=== PATIENT | male | born 1955 | race Caucasian/White ===

== ENCOUNTER 2017-12-16 13:38 | Emergency (ER) | payer OTHER ==
[~2017-12-16] VITALS: Ht 182.9 cm; Wt 124.9 kg
[2017-12-16 13:40] VITALS: BP 148/101; PULSE 59; RESP 16; TEMP 98.2; O2SAT 95
[2017-12-16] MEDS ORDERED: TRAZ50TA12 PO (13:53)
[2017-12-16] MEDS ORDERED: AMLO10TA2 PO (13:53)
[2017-12-16] MEDS ORDERED: METO100T PO (13:53)
[2017-12-16] MEDS ORDERED: LOSA100T PO (13:53)
[2017-12-16] MEDS ORDERED: OXYMETAZOLINE HCL 0.05% 15 ML NASAL SPRAY NASAL ONE (14:15)
[2017-12-16] MEDS ORDERED: TRAM50TA PO ×2 (14:39→14:40)
[2017-12-16] MEDS ORDERED: AMOX875T PO (14:39)
[2017-12-16] MEDS ORDERED: ACETAMINOPHEN 325 MG TAB PO ONE (14:45)
--- NOTE | 2017-12-16 14:56 | PD ---
HPI Chief Complaint: Nosebleed Time Seen by Provider: 13:47 Travel History International Travel<30 days: No Contact w/Intl Traveler<30days: No Traveled to known affect area: No History of Present Illness HPI 62-year-old male that presents to the ED for evaluation of nosebleed. Per patient she's had about 4 within the last 36 hours. She has a history of nosebleeds in the past usually during the winter but not as severe as they have been the past 36 hours. Per patient he has no pain with it. Per patient he had one about less than an hour ago and was seen at urgent care and he was instructed to come here to get evaluated. Now the bleeding has stopped. Per patient he was told by the provider at the urgent care at that she could get help through having catheterization procedure. He denies taking any blood thinners other than aspirin. He denies any pain. No fevers chills or sweats. History of allergic rhinitis but mild. States that he has problems with blood pressure has been taking his blood pressure medications. He himself took some clonidine. PFSH Past Medical History Cardiovascular Problems: Yes (HTN) Hypertension: Yes Medical other: Yes (ELEV CHOLESTEROL, SLEEP APNEA, BAD BACK, ARTHRITIS) Past Surgical History Oral Surgery: Yes Pacemaker: No Other Surgery: Yes (CARPAL TUNNEL) Social History Alcohol Use: Yes (RARELY) Tobacco Use: Yes (CIGARS) Substance Use: No Allergies-Medications (Allergen,Severity, Reaction): Coded Allergies: No Known Allergies (Unverified Adverse Reaction, Unknown, 12/16/17) Reported Meds & Prescriptions Reported Meds & Active Scripts Active Tramadol (Tramadol HCl) 50 Mg Tab 50 Mg PO Q6H PRN Amoxicillin 875 Mg Tab 875 Mg PO BID 10 Days Reported Amlodipine (Amlodipine Besylate) 10 Mg Tab 10 Mg PO DAILY Losartan (Losartan Potassium) 100 Mg Tab 100 Mg PO DAILY Metoprolol Tartrate 100 Mg Tab 100 Mg PO BID Trazodone (Trazodone HCl) 50 Mg Tab 50 Mg PO HS Review of Systems Except as stated in HPI: all other systems reviewed are Neg Physical Exam Narrative GENERAL: SKIN: Warm and dry. HEAD: Atraumatic. Normocephalic. EYES: Pupils equal and round. No scleral icterus. No injection or drainage. ENT: No nasal bleeding or discharge. Mucous membranes pink and moist. Tongue is midline. No uvula deviation. Nostrils are patent bilaterally. No active bleeding noted on either one of the nostrils. No obvious sign of bleed or at this time. NECK: Trachea midline. No JVD. CARDIOVASCULAR: Regular rate and rhythm. RESPIRATORY: No accessory muscle use. Clear to auscultation. Breath sounds equal bilaterally. GASTROINTESTINAL: Abdomen soft, non-tender, nondistended. Hepatic and splenic margins not palpable. MUSCULOSKELETAL: Extremities without clubbing, cyanosis, or edema. No obvious deformities. NEUROLOGICAL: Awake and alert. No obvious cranial nerve deficits. Motor grossly within normal limits. Five out of 5 muscle strength in the arms and legs. Normal speech. PSYCHIATRIC: Appropriate mood and affect; insight and judgment normal. Data Data Last Documented VS Vital Signs Date Time Temp Pulse Resp B/P (MAP) Pulse Ox O2 Delivery O2 Flow Rate FiO2 12/16/17 13:40 98.2 59 16 148/101 (117) 95 Orders Orders Oxymetazoline 0.05% [place] (Afrin 0.0 (12/16/17 14:15) Acetaminophen (Tylenol) (12/16/17 14:45) Ed Discharge Order (12/16/17 14:49) [facility] Medical Decision Making Medical Screen Exam Complete: Yes Emergency Medical Condition: Yes Medical Record Reviewed: Yes Differential Diagnosis Epistaxis versus posterior epistaxis versus allergic rhinitis Narrative Course 62-year-old male that presents to the ED for evaluation of epistaxis. Patient was properly examined and was found to have signs and symptoms consistent with epistaxis. Possibly posterior as I cannot see an obvious anterior bleed. Patient has no bleeding at this time. I have my attending Dr. Kang evaluated the patient and patient was given the option to have a Rhino Rocket to prevent bleeding and she opted to have this. After explained procedure to the patient using Rhino Rocket which was lubricated with sterile water rocket was placed on the right knee area with minimal discomfort for the patient. Patient alert procedure well. Dressing was applied. Patient was told to get this removed in the next 48 hours to 72 hours. Patient was given a prescription for amoxicillin tramadol for pain as patient started developing a headache from having the Rhino Rocket. He was to take Motrin or Tylenol as needed. 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 Patient agrees with plan. All questions were answered to the best of our ability. See ED worsening symptoms. Follow with PCP. Diagnosis Primary Impression: Epistaxis Referrals: Danny Alegre MD, Joseph P. MD Munier, Michael A. MD Patient Instructions: General Instructions Additional Instructions: Get Rhino Rocket removed in the next 48 hours to 72 hours. See ED worsening symptoms. Follow-up with PCP. Take medications only as prescribed. Due to concern antibiotic now or hold for 2 days and if rhino rocket still in place started to prevent sinus infection. Med/Other Pt SpecificInfo: Prescription(s) given Scripts Tramadol (Tramadol) 50 Mg Tab 50 MG PO Q6H Y for PAIN, #10 TAB 0 Refills Prov: Ivania Timmons MD 12/16/17 Amoxicillin (Amoxicillin) 875 Mg Tab 875 MG PO BID for Infection for 10 Days, #20 TAB 0 Refills Prov: Ivania Timmons MD 12/16/17 Disposition: 01 DISCHARGE HOME Condition: Stable Joao Linn Dec 16, 2017 14:56
[2017-12-16 14:59] VITALS: BP 174/89
== END 2017-12-16 15:16 | disposition home or self-care (01) ==
LOC: PHEFT 13:38
DX: R04.0 Epistaxis (principal); I10 Essential (primary) hypertension; E78.00 Pure hypercholesterolemia, unspecified; Z72.0 Tobacco use
CPT/HCPCS: 30905

== ENCOUNTER 2017-12-19 07:57 | Emergency (ER) | payer OTHER ==
[~2017-12-19] VITALS: Ht 182.9 cm; Wt 124.0 kg
[~2017-12-19 07:57] MED LIST: AMLO10TA2 PO; AMOX875T PO; LOSA100T PO; METO100T PO; TRAM50TA PO; TRAZ50TA12 PO
[2017-12-19 08:02] VITALS: BP 160/89; PULSE 56; RESP 16; TEMP 98; O2SAT 96
[2017-12-19] MEDS ORDERED: CLON0.1T PO (09:09)
[2017-12-19] MEDS ORDERED: HYDR-3288 PO (09:09)
--- NOTE | 2017-12-19 09:20 | PD ---
HPI Chief Complaint: Wound/Suture/Staple Re-Check Time Seen by Provider: 09:02 Travel History International Travel<30 days: No Contact w/Intl Traveler<30days: No Traveled to known affect area: No History of Present Illness HPI This is a 62-year-old male here with nasal packing to the right nares. The packing was placed on 12/16/17 here in the emergency department. Patient has a scheduled follow-up appointment with ear nose and throat this week. He denies fever or chills. He denies drainage or Bleeding from around the packing. PFSH Past Medical History Hx Anticoagulant Therapy: No Cardiovascular Problems: Yes (HTN) Diabetes: No Diminished Hearing: No Hypertension: Yes Medical other: Yes (ELEV CHOLESTEROL, SLEEP APNEA, BAD BACK, ARTHRITIS) Tetanus Vaccination: Unknown Past Surgical History Oral Surgery: Yes Pacemaker: No Other Surgery: Yes (CARPAL TUNNEL) Social History Alcohol Use: Yes (RARELY) Tobacco Use: Yes (CIGARS) Substance Use: No Allergies-Medications (Allergen,Severity, Reaction): Coded Allergies: No Known Allergies (Unverified Adverse Reaction, Unknown, 12/19/17) Reported Meds & Prescriptions Reported Meds & Active Scripts Active Reported Clonidine (Clonidine HCl) 0.1 Mg Tab 0.1 Mg PO BID [place] (Hydrocodone-Acetaminophen) 7.5-325 mg Tab 1 Tab PO Q6H PRN Amlodipine (Amlodipine Besylate) 10 Mg Tab 10 Mg PO DAILY Losartan (Losartan Potassium) 100 Mg Tab 100 Mg PO DAILY Metoprolol Tartrate 100 Mg Tab 100 Mg PO BID Trazodone (Trazodone HCl) 50 Mg Tab 50 Mg PO HS Review of Systems Except as stated in HPI: all other systems reviewed are Neg General / Constitutional: No: Fever Eyes: No: Visual changes HENT: No: Headaches Cardiovascular: No: Chest Pain or Discomfort Respiratory: No: Shortness of Breath Gastrointestinal: No: Abdominal Pain Genitourinary: No: Dysuria Physical Exam Narrative GENERAL: Alert and well-appearing 8-year-old male SKIN: Warm and dry. HEAD: Normocephalic. EYES: No injection or drainage. Ear/nose/throat: Rhino Rocket in place to the right naris. No sinus tenderness NECK: Supple Data Data Last Documented VS Vital Signs Date Time Temp Pulse Resp B/P (MAP) Pulse Ox O2 Delivery O2 Flow Rate FiO2 2/4/18 08:02 98.0 56 16 160/89 (112) 96 Orders Orders Ed Discharge Order (12/19/17 09:34) MDM Medical Decision Making Medical Screen Exam Complete: Yes Emergency Medical Condition: Yes Differential Diagnosis nasal packing removal, epistaxis, sinusitis Narrative Course 62 year old male here for right nare packing removal. Packing was removed. Patient was observed. no rebleed. He is to f/u with ENT at scheduled appt. Diagnosis Primary Impression: Encounter for removal of nasal packing Referrals: Ear / Nose / Throat Specialist Additional Instructions: Keep follow up appt with ENT. Do Not blow the nose Hold firm pressure if the nose begins to bleed. return if you are unable to stop the bleeding Disposition: 01 DISCHARGE HOME Condition: Stable Lilliam Morrell Dec 19, 2017 09:20
== END 2017-12-19 09:36 | disposition home or self-care (01) ==
LOC: PHEFT 07:57
DX: Z51.89 Encounter for other specified aftercare (principal); I10 Essential (primary) hypertension; M19.90 Unspecified osteoarthritis, unspecified site; F17.290 Nicotine dependence, other tobacco product, uncomplicated; Z79.899 Other long term (current) drug therapy
CPT/HCPCS: 99281